=== PATIENT | male | born 1950 | race Caucasian/White ===

== ENCOUNTER → 2017-02-20 | Outpatient (CLI) | payer MEDICARE, OTHER, SELFPAY ==
[~2017-02-20] MED LIST: METHACHOLINE KIT (J7674) INH ONE
--- NOTE | 2017-02-20 15:00 | PFTRPT ---
Tech: Radha LAMBERT RRT Age: 66 Sex: Male Race: Height: 67.50 Inches Weight: 274.00 Lbs BSA: 2.32 Diagnosis: R05 METHACHOLINE CHALLENGE REPORT: ORDERING PROVIDER: Britney Ramsey M.D. DATE OF SERVICE: 02/20/17 INTERPRETATION: The study was of excellent technical quality. Some difficulty with effort is noted. Under protocol, methacholine was administered. Even after a maximal dose of 25 mg (188.875 CDUs) of methacholine, no significant provocation dose was ever achieved. A maximum deflection of 18% does not meet criteria for a positive study. IMPRESSION: Negative methacholine challenge study. MTDD
== END ==
LOC: M CARPUL 13:30
PROVIDERS: ATTEND Internal Medicine Pulmonary Disease
DX: R05 Cough (principal)
CPT/HCPCS: 95070; J7674

== ENCOUNTER → 2018-01-10 | Outpatient (REF) | payer OTHER | LOC: M LAB REF 15:31 | DX: L08.9 Local infection of the skin and subcutaneous tissue, unspecified (principal) | CPT/HCPCS: 87186 ==